=== PATIENT | male | born 1950 | race Caucasian/White ===

== ENCOUNTER 2016-07-17 17:21 | Emergency (ER) | payer MEDICARE ==
[~2016-07-17] VITALS: Ht 182.9 cm; Wt 111.1 kg
[2016-07-17] MEDS ORDERED: PRAD75CA3 PO (17:33)
[2016-07-17] MEDS ORDERED: LEVO10VL IM (17:33)
[2016-07-17] MEDS ORDERED: FLUO20CA8 PO (17:33)
[2016-07-17] MEDS ORDERED: SIMV40TA2 PO (17:33)
[2016-07-17] MEDS ORDERED: LISI20TA PO (17:34)
[2016-07-17] MEDS ORDERED: METO200T15 PO (17:34)
[2016-07-17] MEDS ORDERED: ASPI81TA85 PO (17:35)
[2016-07-17] MEDS ORDERED: cefTRIAXone SOD 1 GM in D5W MINI-BAG PLUS 50 ML IV ONE (18:15)
[2016-07-17] MEDS ORDERED: LIDOCAINE 2% W/EPIN INJ 20ML **PRES FREE INJ ONE (18:15)
[2016-07-17] MEDS ORDERED: TETANUS/DIPHTHERIA TOX ADSORB ADULT 0.5ML SYR/VIAL (90714) IM ONE (19:45)
[2016-07-17 19:54] VITALS: BP 143/82
--- NOTE | 2016-07-21 10:22 | REP ---
Left knee series: Five views. Repeat dictation. History: Chainsaw laceration. Findings: Five views of the left knee demonstrate patellofemoral osteoarthritic narrowing and spur formation. There is moderate medial and mild lateral compartment spurring. No fracture is seen. Soft tissues are radiographically unremarkable. Impression: Three compartment osteoarthritis. No fracture is seen. No soft tissue gas seen. Signed by Hema Choudhary MD 07/21/2016 12:38 P
== END 2016-07-17 20:11 | disposition home or self-care (01) ==
LOC: M ED 18:03
DX: S81.012A Laceration without foreign body, left knee, initial encounter (principal); W29.3XXA Contact with powered garden and outdoor hand tools and machinery, initial encounter; Y92.89 Other specified places as the place of occurrence of the external cause; Y93.89 Activity, other specified; Y99.8 Other external cause status; I10 Essential (primary) hypertension; E78.00 Pure hypercholesterolemia, unspecified; I48.91 Unspecified atrial fibrillation; F32.9 Major depressive disorder, single episode, unspecified; Z79.899 Other long term (current) drug therapy; Z79.01 Long term (current) use of anticoagulants; Z79.82 Long term (current) use of aspirin
CPT/HCPCS: 12002; 73564; 90471; 90714; 96374; 99283; J0696